=== PATIENT | female | born 1945 | race African-American/Black ===

== ENCOUNTER 2018-04-18 00:52 | Emergency (ER) | payer MEDICARE ==
[~2018-04-18] VITALS: Ht 162.6 cm; Wt 77.1 kg
[2018-04-18] MEDS ORDERED: AMLODIPINE BESYL5 MG ORAL (00:58)
[2018-04-18] MEDS ORDERED: METOPROLOL TART50 M1 ORAL (00:58)
[2018-04-18] MEDS ORDERED: NORVASC2.5 MG ORAL (00:58)
[2018-04-18 01:05] VITALS: BP 137/63
--- NOTE | 2018-04-18 01:39 | Emergency Room Report ---
History of Present Illness General Chief Complaint: Multiple Trauma/Fall Source: Patient, Medical Record, EMS Present Illness HPI This is a 72-year-old female with multiple medical problems. She presents with chief complaint of a mechanical fall and head injury. She fell when she try to get up and hit her head. No loss of consciousness. No pain. Because she is on Plavix family called 911. No syncope. No loss of consciousness. No nausea no vomiting. No seizure activity. Allergies: Coded Allergies: SULFA (SULFONAMIDE ANTIBIOTICS) (Verified Allergy, Unknown, 04/18/18) Patient History Past Medical History: see triage record, old chart reviewed, DM, HTN Past Surgical History: other Pertinent Family History: none Social History: Denies: smoking Last Menstrual Period: n/a Now: No Immunizations: other Reviewed Nursing Documentation: PMH: Agreed; PSxH: Agreed Nursing Documentation-PMH Past Medical History: No History, Except For Hx Hypertension: Yes Hx Diabetes: Yes - dm2 Hx Cancer: Yes - breast Review of Systems Eye: Denies: eye pain, blurred vision ENT: Denies: ear pain, nose congestion, throat swelling Respiratory: Denies: cough, shortness of breath Cardiovascular: Denies: chest pain, palpitations Gastrointestinal: Denies: abdominal pain, diarrhea, nausea, vomiting Musculoskeletal: Denies: back pain, joint pain Skin: Denies: rash Neurological: Denies: headache, numbness Endocrine: Denies: increased thirst, increased urine Hematologic/Lymphatic: Denies: easy bruising All Other Systems: negative except mentioned in HPI Physical Exam Vital Signs Date Time Temp Pulse Resp B/P (MAP) Pulse Ox O2 Delivery O2 Flow Rate FiO2 04/18/18 00:51 97.9 78 16 117/69 100 Room Air 97.9 vitals normal Sp02 EP Interpretation: reviewed, normal General Appearance: well appearing, no apparent distress, alert Head: normocephalic, atraumatic Eyes: bilateral eye PERRL, bilateral eye EOMI ENT: hearing grossly normal, normal pharynx Neck: full range of motion, supple, no meningismus Respiratory: chest non-tender, lungs clear, normal breath sounds Cardiovascular #1: regular rate, rhythm, no murmur Gastrointestinal: normal bowel sounds, non tender, no mass, no organomegaly, no bruit, non-distended Musculoskeletal: back normal, normal range of motion Neurologic: alert Psychiatric: mood/affect normal Skin: warm/dry Medical Decision Making Diagnostic Impression: Primary Impression: Head injury, acute Qualified Codes: S09.90XA - Unspecified injury of head, initial encounter ER Course Patient with head injury. No bleed or skull fracture. CT head is negative. We 'll discharge home. CT/MRI/US Diagnostic Results CT/MRI/US Diagnostic Results : Imaging Test Ordered: CT head Impression negative per radiologist Last Vital Signs Date Time Temp Pulse Resp B/P (MAP) Pulse Ox O2 Delivery O2 Flow Rate FiO2 04/18/18 00:51 97.9 78 16 117/69 100 Room Air 97.9 Status: improved Disposition: HOME, SELF-CARE Condition: Stable Referrals: NOT CHOSEN IPA/MD,REFERRING (PCP) Additional Instructions: follow-up with your doctor in 7 days. Return if worse. PORTER CAMPBELL M.D. Apr 18, 2018 01:39
[2018-04-18 02:05] VITALS: BP 128/67
[2018-04-18 03:40] VITALS: BP 128/67
--- NOTE | 2018-04-18 10:04 | Diagnostic Imaging Report ---
Indication: Head trauma. Headache Technique: Contiguous 5 mm thick transaxial imaging of the head obtained in a Siem[employer] Sensation [address] scanner. Soft tissue and bone windows generated. Automatic Exposure Control was utilized. Total Dose length Product (DLP): 1274.[address] Dose Index Volume (CTDIvol): 70.38 mGy Comparison: none Findings: There is moderate prominence of the ventricles, basal cisterns, and cerebral sulci consistent with atrophy. Moderate, nonspecific, white matter hypoattenuation is noted throughout the brain consistent with chronic small vessel disease. There is an abnormal area of low attenuation in the right frontal lobe/temporal lobe likely late subacute to chronic infarct. Correlate clinically. The anterior horn of the right lateral ventricle which is adjacent to this focus appears slightly enlarged which is likely a sign of ex vacuo dilatation due to adjacent volume loss. There is no midline shift, edema, acute hemorrhage, mass effect, or abnormal extra-axial fluid collections. Bones and extra osseous soft tissues are unremarkable. Impression: No acute intracranial bleed, mass effect or edema. 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 Moderate atrophy of the brain. Evidence of chronic small vessel disease involving white matter tracts. The CT scanner at [facility] is accredited by the [employer] and the scans are performed using dose optimization techniques as appropriate to a performed exam including Automatic Exposure control.
== END 2018-04-18 03:40 | disposition home or self-care (01) ==
LOC: EDBD 00:52 → EMR 01:12
DX: S09.8XXA Other specified injuries of head, initial encounter (principal); W19.XXXA Unspecified fall, initial encounter; Y92.9 Unspecified place or not applicable; E11.9 Type 2 diabetes mellitus without complications; I10 Essential (primary) hypertension; Z85.3 Personal history of malignant neoplasm of breast
CPT/HCPCS: 70450; 99284